=== PATIENT | female | born 1965 | race Caucasian/White ===

== ENCOUNTER 2021-02-17 11:05 | Emergency (ER) | payer OTHER ==
[~2021-02-17] VITALS: Ht 160 cm; Wt 80.7 kg
[2021-02-17] MEDS ORDERED: CASIRIVIMAB/IMDEVIMAB 10 ML in SODIUM CHLORIDE 0.9% 100 ML IV ONE (11:30)
== END 2021-02-17 12:50 | disposition home or self-care (01) ==
LOC: ER 11:15
DX: R05 Cough (principal); U07.1 COVID-19; D64.9 Anemia, unspecified
CPT/HCPCS: 99283; J7050